=== PATIENT | female | born 1935 | race American Indian/Alaskan Native ===

== ENCOUNTER 2017-08-05 11:51 | Emergency (ER) | payer MEDICARE, BC ==
[2017-08-05 11:51] VITALS: BMI 20.7
[2017-08-05 12:23] VITALS: RESP 18
[2017-08-05] MEDS ORDERED: Sodium Chloride 0.9% 1,000 ML IV ONE (13:12)
[2017-08-05] MEDS ORDERED: Iohexol 240 (50 ml) PO ONE (13:17)
[2017-08-05] MEDS ORDERED: Sodium Chloride 0.9% 1,000 ML ONE (13:22)
[2017-08-05] MEDS ORDERED: Iohexol 240 (50 ml) ONE (13:30)
[2017-08-05 13:40] LABS: BASO # 0.1 K/uL (0.0-0.2); BASO % 0.7 % (0.0-2.0); EOS # 0.1 K/uL (0.0-0.7); HEMOGLOBIN 11.2 g/dL (11.0-16.0); LYMPH # 1.2 K/uL (1.0-4.3); LYMPH % 11.3 % (20.0-40.0); MEAN CELL VOLUME 89.1 fL (81.0-99.0); MEAN CORPUSCULAR HEMOGLOBIN 30.4 pg (27.0-31.0); MEAN CORPUSCULAR HGB CONC 34.1 g/dL (33.0-37.0); MEAN PLATELET VOLUME 7.6 fL (7.2-11.7); MONO # 0.5 K/uL (0.0-0.8); MONO % 4.7 % (0.0-10.0); NEUT # 8.5 K/uL (1.8-7.0); NEUT % 82.3 % (50.0-75.0); RBC 3.67 Mil/uL (3.80-5.20); WHITE BLOOD COUNT 10.3 K/uL (4.8-10.8)
--- NOTE | 2017-08-05 13:43 | RAD ---
PROCEDURE: CHEST RADIOGRAPH, 1 VIEW HISTORY: Abdominal pain COMPARISON: 07/30/2016 FINDINGS: LUNGS: Clear. PLEURA: No pneumothorax or pleural fluid seen. CARDIOVASCULAR: No radiographic findings to suggest acute or significant cardiovascular disease. OSSEOUS STRUCTURES: No significant abnormalities. VISUALIZED UPPER ABDOMEN: Normal. OTHER FINDINGS: Left axillary node dissection, left mastectomy. IMPRESSION: No active disease. No acute/significant interval changes.
[2017-08-05 13:58] LABS: ALB/GLOB RATIO 1.1 (1.0-2.1); ALBUMIN 3.8 g/dL (3.5-5.0); ALT/SGPT 14 U/L (9-52); AST/SGOT 18 U/L (14-36); BLOOD UREA NITROGEN 12 mg/dL (7-17); GFR AFRICAN-AMERICAN > 60; GFR NON-AFRICAN AMERICAN > 60; LIPASE 22 U/L (23-300)
--- NOTE | 2017-08-05 14:35 | C.PDOC ---
History Of Present Illness 81-year-old female, PMHx includes Breast CA and Dementia, presents to the emergency department with complaints of melena and diffuse abdominal pain that started last week, associated with nausea, non-bloody/non-bilious vomiting and non-bloody/watery diarrhea. Patient denies fevers, chest pain, shortness of breath, headache, dizziness or any other associated symptoms. No other complaints at this time Time Seen by Provider: 08/05/17 12:43 Chief Complaint (Nursing): Abdominal Pain History Per: Patient History/Exam Limitations: no limitations Past Medical History Reviewed: Historical Data, Nursing Documentation, Vital Signs Vital Signs: Last Vital Signs Temp 98.4 F 08/05/17 16:17 Pulse 75 08/05/17 16:17 Resp 18 08/05/17 16:17 BP 136/78 08/05/17 16:17 Pulse Ox 99 08/05/17 18:34 - Medical History PMH: Dementia, HTN, Hypothyroidism Family History: States: No Known Family Hx - Social History Hx Tobacco Use: No Hx Alcohol Use: No Hx Substance Use: No - Immunization History Hx Tetanus Toxoid Vaccination: No Hx Influenza Vaccination: No Hx Pneumococcal Vaccination: No Review Of Systems Except As Marked, All Systems Reviewed And Found Negative. Constitutional: Negative for: Fever, Chills Cardiovascular: Negative for: Chest Pain Respiratory: Negative for: Cough, Shortness of Breath Gastrointestinal: Positive for: Abdominal Pain, Melena Musculoskeletal: Negative for: Back Pain Neurological: Negative for: Weakness, Headache, Dizziness Physical Exam - Physical Exam Appears: Non-toxic, No Acute Distress Skin: Normal Color, Warm, Dry, No Rash Head: Normacephalic Eye(s): bilateral: PERRL Nose: Normal Oral Mucosa: Moist Lips: Normal Appearing Neck: Normal ROM Cardiovascular: Rhythm Regular, No Murmur Respiratory: Normal Breath Sounds, No Accessory Muscle Use Gastrointestinal/Abdominal: Soft, Tenderness (mild diffuse tenderness, (+) bs, no guarding, no rebound, no distention) Rectal: Normal Exam, Heme Negative Extremity: Normal ROM, No Deformity, No Swelling Neurological/Psych: Oriented x3, Normal Speech ED Course And Treatment - Laboratory Results Result Diagrams: 08/05/17 13:30 08/05/17 13:30 ECG: Interpreted By Me, Viewed By Me ECG Rhythm: Sinus Rhythm ECG Interpretation: No Acute Changes Rate From EC O2 Sat by Pulse Oximetry: 99 (RA) Pulse Ox Interpretation: Normal - CT Scan/US CT abd/Pel Other Rad Studies (CT/US): Read By Radiologist, Radiology Report Reviewed CT/US Interpretation: Accession No. : [id number]. Patient Name / ID : KEVIN GONZALEZ / [id number]. Exam Date : 08/05/2017 15:58:33 ( Approved ). Study Comment : Sex / Age : F / 81Y. Creator : Jennifer Kam. Dictator : Mirlande Hough MD. Vegetable Farmer : Lapel Stitcher : Mirlande Hough MD. Approver2 : Report Date : 08/05/2017 16:13:29. My Comment : . PROCEDURE: CT Abdomen and Pelvis with oral and IV contrast. HISTORY: abd pain. COMPARISON: CT chest and abdomen with contrast performed 02/12/12. TECHNIQUE: Contiguous axial images of the abdomen and pelvis. Oral and IV contrast was administered. Coronal and Sagittal reformats generated and reviewed. Contrast dose: 100 mL Visipaque IV. Radiation dose: Total exam DLP = 250.71 go mGy-cm. This CT exam was performed using one or more of the following dose reduction techniques: Automated exposure control, adjustment of the mA and/or kV according to patient size, and/or use of iterative reconstruction technique. FINDINGS: LOWER THORAX: No visible consolidation, pleural effusion, or pneumothorax. LIVER: Unremarkable. GALLBLADDER AND BILE DUCTS: Unremarkable. PANCREAS: Unremarkable. SPLEEN: Unremarkable. ADRENALS: Unremarkable. KIDNEYS AND URETERS: The kidneys enhance symmetrically. No hydronephrosis or obstructing renal calculus. 2.1 cm left renal cyst. BLADDER: The urinary bladder appears unremarkable. REPRODUCTIVE: Uterus is present. APPENDIX: The presumed appendix appears within normal limits of caliber. No secondary signs of acute appendicitis. BOWEL: The stomach is nondistended. No evidence of small-bowel obstruction. Extensive diverticulosis of the rectosigmoid colon. Marked wall thickening most severely affecting the sigmoid colon but noted within the left/rectosigmoid colon. Appearance is worrisome for acute diverticulitis or nonspecific colitis. Correlate clinically. Recommend follow-up to clearing and consider colonoscopy when clinically feasible/indicated as underlying neoplasm cannot be entirely excluded. PERITONEUM: No significant free fluid. No definite free air. LYMPH NODES: No bulky lymphadenopathy identified. VASCULATURE: No aortic aneurysm. BONES: Degenerative changes. OTHER FINDINGS: None. IMPRESSION: Extensive diverticulosis of the rectosigmoid colon. Marked wall thickening most severely affecting the sigmoid colon but also involving left/rectosigmoid colon. Appearance is worrisome for acute diverticulitis or nonspecific colitis. Correlate clinically. Recommend follow-up to clearing and consider colonoscopy when clinically feasible/indicated as underlying neoplasm cannot be entirely excluded. Additional findings as above. Medical Decision Making Medical Decision Making: Plan: * CT Abd/Pel * EKG * Bloodwork * Chest X-Ray * Morphine, Pepcid, IVF, Zofran * UA * Reassess and Disposition Patient offered hospital admission but would like to go home and treat symptoms. Patient is resting comfortably, in no distress, abdomen is soft, no rebound or guarding, and is tolerating PO. Patient has no signs or symptoms to suggest surgical pathology. Patient was advised to follow up without fail with physician/clinic in 1-[address] of [address] report. Disposition Counseled Patient/Family Regarding: Studies Performed, Diagnosis, Need For Followup, Rx Given - Disposition Referrals: Ryanne Olivarez MD [Staff Provider] - [facility] [Outside] Disposition: HOME/ ROUTINE Disposition Time: 17:07 Condition: STABLE Additional Instructions: follow up with your doctor in 2 days call to make an appointment return to ER if symptoms worsens or progress take medications as prescribed Prescriptions: Ciprofloxacin HCl [Cipro] 500 mg PO BID #20 tab Metronidazole [Flagyl] 500 mg PO BID #20 tablet traMADol [Ultram] 50 mg PO TID PRN #8 tab PRN Reason: Pain, Moderate (4-7) Instructions: Diverticulitis (DC) Forms: [facility] (Croatian), General Discharge Instructions - Clinical Impression Clinical Impression: Diverticulitis - Scribe Statement The provider has reviewed the documentation as recorded by the Scribe (Michelle Chery) All medical record entries made by the Nuriaibvanda were at my direction and personally dictated by me. I have reviewed the chart and agree that the record accurately reflects my personal performance of the history, physical exam, medical decision making, and the department course for this patient. I have also personally directed, reviewed, and agree with the discharge instructions and disposition.
[2017-08-05] MEDS ORDERED: Iodixanol 320 MG/ML 100 ML BOTTLE IV ONE (15:35)
[2017-08-05 16:20] VITALS: BP 136/78; PULSE 75; TEMP 98.4
--- NOTE | 2017-08-05 16:44 | CT ---
PROCEDURE: CT Abdomen and Pelvis with oral and IV contrast. HISTORY: abd pain COMPARISON: CT chest and abdomen with contrast performed 02/12/12 TECHNIQUE: Contiguous axial images of the abdomen and pelvis. Oral and IV contrast was administered. Coronal and Sagittal reformats generated and reviewed. Contrast dose: 100 mL Visipaque IV Radiation dose: Total exam DLP = 250.71 go mGy-cm. This CT exam was performed using one or more of the following dose reduction techniques: Automated exposure control, adjustment of the mA and/or kV according to patient size, and/or use of iterative reconstruction technique. FINDINGS: LOWER THORAX: No visible consolidation, pleural effusion, or pneumothorax. LIVER: Unremarkable. GALLBLADDER AND BILE DUCTS: Unremarkable. PANCREAS: Unremarkable. SPLEEN: Unremarkable. ADRENALS: Unremarkable. KIDNEYS AND URETERS: The kidneys enhance symmetrically. No hydronephrosis or obstructing renal calculus. 2.1 cm left renal cyst. BLADDER: The urinary bladder appears unremarkable. REPRODUCTIVE: Uterus is present. APPENDIX: The presumed appendix appears within normal limits of caliber. No secondary signs of acute appendicitis. BOWEL: The stomach is nondistended. No evidence of small-bowel obstruction. Extensive diverticulosis of the rectosigmoid colon. Marked wall thickening most severely affecting the sigmoid colon but noted within the left/rectosigmoid colon. Appearance is worrisome for acute diverticulitis or nonspecific colitis. Correlate clinically. Recommend follow-up to clearing and consider colonoscopy when clinically feasible/indicated as underlying neoplasm cannot be entirely excluded. PERITONEUM: No significant free fluid. No definite free air. LYMPH NODES: No bulky lymphadenopathy identified. VASCULATURE: No aortic aneurysm. BONES: Degenerative changes. OTHER FINDINGS: None. IMPRESSION: Extensive diverticulosis of the rectosigmoid colon. Marked wall thickening most severely affecting the sigmoid colon but also involving left/rectosigmoid colon. Appearance is worrisome for acute diverticulitis or nonspecific colitis. Correlate clinically. Recommend follow-up to clearing and consider colonoscopy when clinically feasible/indicated as underlying neoplasm cannot be entirely excluded. Additional findings as above.
[2017-08-05 17:09] VITALS: O2SAT 99
--- NOTE | 2017-08-06 12:07 | CARD ---
APPROVED REPORT EKG Measurement Heart [id number] <Conclusion> Normal sinus rhythm Nonspecific T wave abnormality Abnormal ECG
== END 2017-08-05 17:46 | disposition home or self-care (01) ==
LOC: C.ER 11:51
DX: K57.32 Diverticulitis of large intestine without perforation or abscess without bleeding (principal); I10 Essential (primary) hypertension; E03.9 Hypothyroidism, unspecified; F03.90 Unspecified dementia, unspecified severity, without behavioral disturbance, psychotic disturbance, mood disturbance, and anxiety; Z85.3 Personal history of malignant neoplasm of breast
CPT/HCPCS: 71045; 74177; 80053; 83690; 84484; 85025; 93005; 96374; 96375; 99285; J2405; J7040; Q9966; Q9967